=== PATIENT | male | born 1980 | race Caucasian/White ===

== ENCOUNTER 2018-04-16 08:49 | Emergency (ER) | payer OTHER ==
[~2018-04-16 08:49] MED LIST: DOC100 PO; PER PO
--- NOTE | 2018-04-16 09:00 | ER Report ---
History and Physical Time Seen By MD: 09:00 Hx. of Stated Complaint: PT WAS TIEING DOWN A FOUR CARDOSO YESRTERDAY AND THREW HIS BACK OUT, HE HAD DONE THIS IN THE PAST. HPI/ROS CHIEF COMPLAINT: Low back pain HISTORY OF PRESENT ILLNESS: Patient is a 37-year-old male here with complaints of left lower back pain with radiation to the knee which started yesterday on the patient was ratcheting straps. Patient reports having similar episodes in the past. Patient reports worsening pain today prompting evaluation. Patient has not taken lole-lnj-fjqoiju medications for alleviation of symptoms. Patient denies bowel or bladder incontinence, fevers, saddle anesthesia, lower extremity weakness. Neurovascular exam is intact at time of evaluation. REVIEW OF SYSTEMS: Constitutional: No fever, no chills. Eyes: No discharge. ENT: No sore throat. Cardiovascular: No chest pain, no palpitations. Respiratory: No cough, no shortness of breath. Gastrointestinal: No abdominal pain, no vomiting. Genitourinary: No hematuria. Musculoskeletal: + left lower back pain. Skin: No rashes. Neurological: No focal neurological deficits Allergies: Coded Allergies: No Known Drug Allergies (Unverified , 04/16/18) Home Meds Active Scripts Tramadol Hcl (TRAMADOL HCL) 50 Mg Tablet, 50 MG PO Q6H Y for PAIN, #12 TAB 0 Refills Prov:MIKHAIL SHIN DO 04/16/18 Prednisone (PREDNISONE) 20 Mg Tablet, 40 MG PO QDAY for 5 Days, #5 TAB Prov:SHINSACHAMIKHAIL S DO 04/16/18 Diazepam (VALIUM) 5 Mg Tablet, 5 MG PO 2-3XD Y for BACK PAIN, #10 TAB Prov:MIKHAIL SHIN S DO 04/16/18 Hx Smoking: Yes (1ppd) Smoking Status: Current: Every Day Smoker Hx Substance Use Disorder: No Hx Alcohol Use: Yes (occ) Constitutional Vital Sign - Last 24 Hours 04/16/18 08:55 Temp 98.2 Pulse 93 Resp 16 B/P (MAP) 135/100 Pulse Ox 94 O2 Delivery Room Air Physical Exam General Appearance: The patient is alert, has no immediate need for airway protection and no signs of toxicity. No acute distress Eyes: Pupils equal and round no pallor or injection. ENT, Mouth: Mucous membranes are moist. Respiratory: There are no retractions, lungs are clear to auscultation. Cardiovascular: Regular rate and rhythm. Gastrointestinal: Abdomen is soft and non tender, no masses, bowel sounds normal. Neurological: No focal neurological deficits, neurovascular exam is intact in the lower extremities Skin: Warm and dry, no rashes. Musculoskeletal: Neck is supple non tender. + Left lateral lower back pain Extremities are nontender, nonswollen and have full range of motion. DIFFERENTIAL DIAGNOSIS: After history and physical exam differential diagnosis was considered for back pain including but not limited to muscular pain, herniated disc, spine fracture, intra-abdominal causes and urinary tract infection. Medical Decision Making ED Course/Re-evaluation ED Course Patient is a 37-year-old male with a history of lower back pain intermittently. Patient reports that yesterday he was ratcheting straps when he developed worsening lower back pain especially in the left lower back lateral distribution with radiation of pain to the left knee. Patient denies lower extremity weakness, neurovascular exam is intact. Denies bowel or bladder incontinence, saddle anesthesias, fevers, and midline back pain. X-ray lumbar spine showed no acute abnormalities. Patient was given Toradol and prescription for prednisone, Valium and tramadol for outpatient symptom management. Patient was advised to follow-up with his family doctor in the next week. Decision to Disposition Date: Apr 16, 2018 Decision to Disposition Time: 10:02 Depart Departure Latest Vital Signs Vital Signs Date Time Temp Pulse Resp B/P (MAP) Pulse Ox O2 Delivery O2 Flow Rate FiO2 04/16/18 08:55 98.2 93 16 135/100 94 Room Air Impression: Primary Impression: Back pain Condition: Improved Disposition: HOME OR SELF-CARE Referrals: LATOYA BAILEY MD (PCP) New Scripts Tramadol Hcl (TRAMADOL HCL) 50 Mg Tablet 50 MG PO Q6H Y for PAIN, #12 TAB 0 Refills Prov: MIKHAIL SHIN DO 04/16/18 Prednisone (PREDNISONE) 20 Mg Tablet 40 MG PO QDAY for 5 Days, #5 TAB Prov: MIKHAIL SHIN DO 04/16/18 Diazepam (VALIUM) 5 Mg Tablet 5 MG PO 2-3XD Y for BACK PAIN, #10 TAB Prov: MIKHAIL SHIN DO 04/16/18 Patient Instructions: Back Pain (ED) Additional Instructions: You may take 1 tablet of Valium 3 times a day as needed for muscle spasm. You may take ibuprofen or naproxen for pain control and you may take tramadol 1 tablet every 6-8 hours as needed for breakthrough pain. Please take prednisone 2 tablets of 40 mg daily for 5 days. Please return promptly if you develop bowel or bladder incontinence, lower extremity weakness, fevers or worsening pain. MIKHAIL SHIN DO Apr 16, 2018 09:00
[2018-04-16] MEDS ORDERED: KETOROLAC 30 MG/ML VIAL IM ONE (09:05)
[2018-04-16] MEDS ORDERED: DIA5 PO (09:09)
[2018-04-16] MEDS ORDERED: TRAM-420 PO (09:09)
[2018-04-16] MEDS ORDERED: PRED20TA6 PO (09:09)
--- NOTE | 2018-04-16 09:56 | RADIOLOGY IMAGING REPORT ---
FACILITY: [facility] PATIENT NAME: Pk Aleman : 1980 MR: [id number] V: [id number] EXAM DATE: ORDERING PHYSICIAN: MIKHAIL SHIN TECHNOLOGIST: Location: [facility] Patient: Pk Aleman : 1980 Visit/Account:[id number] Date of Sevice: 04/16/2018 Exam type: 3 view lumbar spine History: pain x 1 day Comparison: None. Findings: There are 5 nonrib-bearing lumbar vertebral bodies. No acute fracture seen. Endplate degenerative anjali nges are noted. 5 mm of retrolisthesis of L5 with respect S1 is noted. Surrounding soft tissues are u nremarkable. IMPRESSION: 1. Mild degenerative changes are noted in the lumbar spine but no acute fracture. Report Dictated By: Jim Mcdonough MD at 04/16/2018 9:51 AM Report E-Signed By: Jim Mcdonough MD at 04/16/2018 9:53 AM WSN:[id number]
[2018-04-16 10:05] VITALS: BP 121/95
== END 2018-04-16 10:05 | disposition home or self-care (01) ==
LOC: ER 09:05
DX: M54.5 Low back pain (principal)
CPT/HCPCS: 72100; 96372; 99283; J1885